=== PATIENT | female | born 1965 | race Caucasian/White ===

== ENCOUNTER 2016-10-13 07:25 | Emergency (ER) | payer MEDICAID, MEDICARE ==
[2016-10-13 07:44] VITALS: BP 107/62
--- NOTE | 2016-10-13 07:47 | UC ---
Skin Complaint HPI - HPI Summary HPI Summary: Two nights ago she was sitting in grass and that same night noticed two itchy insect bites. NO ticks noted. she has had pink patches in these areas. - History of Current Complaint Chief Complaint: [facility] Time Seen by Provider: 10/13/16 07:41 Stated Complaint: INSECT BITE Hx Obtained From: Patient Hx Last Menstrual Period: 01/31/16 ?: No Onset/Duration: Gradual Onset Skin Exposure Onset/Duration: Days Ago Onset Severity: Mild Current Severity: Mild - Allergy/Home Medications Allergies/Adverse Reactions: Allergies Allergy/AdvReac Type Severity Reaction Status Date / Time No Known Allergies Allergy Verified 10/13/16 07:36 Review of Systems All Other Systems Reviewed And Are Negative: Yes PMH/Surg Hx/FS Hx/Imm Hx Previously Healthy: Yes Endocrine History Of: Denies: Diabetes - Surgical History Surgical History: None - Family History Known Family History: Positive: Hypertension - Social History Alcohol Use: Occasionally Substance Use Type: None Smoking Status (MU): Never Smoked Tobacco - Immunization History Most Recent Influenza Vaccination: NONE Most Recent Tetanus Shot: WITHIN 10 YEARS Physical Exam Triage Information Reviewed: Yes Appearance: Well-Appearing, No Pain Distress, Well-Nourished Vital Signs: Initial Vital Signs Temp 98 F 10/13/16 07:38 Pulse 101 10/13/16 07:38 Resp 18 10/13/16 07:38 BP 107/62 10/13/16 07:38 Pulse Ox 100 10/13/16 07:38 Vital Signs Reviewed: Yes Eye Exam: Normal Eyes: Positive: Conjunctiva Clear. Negative: Conjunctiva Inflamed ENT Exam: Normal Dental Exam: Normal Neck exam: Normal Neck: Positive: Supple, Nontender, No Lymphadenopathy Respiratory Exam: Normal Respiratory: Positive: Chest non-tender, Lungs clear, Normal breath sounds, No respiratory distress, No accessory muscle use. Negative: Respiratory distress, Decreased breath sounds Cardiovascular Exam: Normal Cardiovascular: Positive: RRR, No Murmur, Pulses Normal, Brisk Capillary Refill Abdominal Exam: Normal Abdomen Description: Positive: Nontender, No Organomegaly, Soft Musculoskeletal Exam: Normal Musculoskeletal: Positive: Strength Intact, ROM Intact, No Edema Neurological Exam: Normal Neurological: Positive: Alert, Muscle Tone Normal. Negative: Fatigued Psychological Exam: Normal Skin: Positive: rashes - two patches of pink skin without any signs of imbeded ticks. they are not tender or hot. No streaking. Course/Dx - Diagnoses Provider Diagnoses: insect bites. Discharge - Discharge Plan Condition: Good Disposition: HOME Patient Education Materials: Insect Bite or Sting (ED) Referrals: Non Staff,Doctor [Primary Care Provider] -
== END 2016-10-13 07:55 | disposition home or self-care (01) ==
LOC: UCCORT 07:25
DX: S80.862A Insect bite (nonvenomous), left lower leg, initial encounter (principal); S40.861A Insect bite (nonvenomous) of right upper arm, initial encounter; W57.XXXA Bitten or stung by nonvenomous insect and other nonvenomous arthropods, initial encounter; Y93.9 Activity, unspecified; Y92.89 Other specified places as the place of occurrence of the external cause
CPT/HCPCS: 99211; G0463

== ENCOUNTER 2018-02-11 14:54 | Emergency (ER) | payer MEDICARE, MEDICAID ==
[2018-02-11 15:20] VITALS: BP 112/71
--- NOTE | 2018-02-11 15:31 | UC ---
UC General HPI - HPI Summary HPI Summary: patient is concerned about left leg pain for a couple of months-patient states she spoke to provider who suggested she comes her for a dvt study--- - History of Current Complaint Chief Complaint: UCGeneralIllness Stated Complaint: LEFT LEG COMPLAINT Time Seen by Provider: 02/11/18 15:10 Hx Obtained From: Patient Hx Last Menstrual Period: 01/31/16 Onset/Duration: Gradual Onset, Lasting Weeks - 8 Timing: Constant Pain Intensity: 1 - Allergy/Home Medications Allergies/Adverse Reactions: Allergies Allergy/AdvReac Type Severity Reaction Status Date / Time No Known Allergies Allergy Verified 10/13/16 07:36 Home Medications: Home Medications NK [No Home Medications Reported] 02/11/18 [History Confirmed 02/11/18] PMH/Surg Hx/FS Hx/Imm Hx Previously Healthy: No - chronic fatigue syndrome - Surgical History Surgical History: None - Family History Known Family History: Positive: Hypertension - Social History Occupation: Unemployed Lives: With Family Alcohol Use: Occasionally Substance Use Type: None Smoking Status (MU): Never Smoked Tobacco - Immunization History Most Recent Influenza Vaccination: NONE Most Recent Tetanus Shot: WITHIN 10 YEARS Review of Systems Constitutional: Negative Skin: Negative Eyes: Negative ENT: Negative Respiratory: Negative Cardiovascular: Negative Gastrointestinal: Negative Genitourinary: Negative Motor: Negative Neurovascular: Negative Musculoskeletal: Negative, Other: - left leg pain---shooting pain "could it be neuropathy from hypoglycemia?" Neurological: Negative Psychological: Negative Is Patient Immunocompromised?: No All Other Systems Reviewed And Are Negative: Yes Physical Exam Triage Information Reviewed: Yes Appearance: Well-Appearing, No Pain Distress, Well-Nourished Vital Signs: Initial Vital Signs Temp 98.9 F 02/11/18 15:11 Pulse 83 02/11/18 15:11 Resp 19 02/11/18 15:11 BP 112/71 02/11/18 15:11 Pulse Ox 99 02/11/18 15:11 Vital Signs Reviewed: Yes Eye Exam: Normal Eyes: Positive: Conjunctiva Clear ENT Exam: Normal ENT: Positive: Normal ENT inspection, Hearing grossly normal. Negative: Trismus , Muffled voice, Hoarse voice Dental Exam: Normal Neck exam: Normal Neck: Positive: Supple, Nontender Respiratory Exam: Normal Respiratory: Positive: Chest non-tender, No respiratory distress, No accessory muscle use Cardiovascular Exam: Normal Cardiovascular: Positive: RRR, Pulses Normal, Brisk Capillary Refill Musculoskeletal Exam: Normal Musculoskeletal: Positive: Strength Intact, ROM Intact, No Edema Neurological Exam: Normal Neurological: Positive: Alert, Muscle Tone Normal, Other: - patient has some varicosities on left lower leg, no pain erythema cord, swelling or firm areas-- Psychological Exam: Other Psychological: Positive: Other: - patient requires redirection and focus - Skin Exam: Normal Course/Dx - Course Course Of Treatment: patient states she will follow up with Corazon Farias--- patient encourage to go to emergency depatment for any emergency concerns - Differential Dx - Multi-Symptom Provider Diagnoses: left lower leg pain, varicous viens Discharge - Sign-Out/Discharge Documenting (check all that apply): Patient Departure All imaging exams completed and their final reports reviewed: No Studies - Discharge Plan Condition: Stable Disposition: HOME-RECOMMEND TO ED Patient Education Materials: Leg Pain (ED) Referrals: Corazon Farias PA [Primary Care Provider] - 1 Day Additional Instructions: We cannot do the studies you need for evaluation of your leg pain--please go to hospital for evaluation of your leg pain tonight - Billing Disposition and Condition Condition: STABLE Disposition: Home-Recommend to ED
== END 2018-02-11 15:38 | disposition home health service (06) ==
LOC: UCCORT 14:54
DX: I83.812 Varicose veins of left lower extremity with pain (principal)
CPT/HCPCS: 99212; G0463